=== PATIENT | female | born 1995 | race Caucasian/White ===

== ENCOUNTER 2017-07-22 09:38 | Emergency (ER) | payer OTHER ==
[2017-07-22] MEDS ORDERED: IPRATROPIUM/ALBUTEROL 3 ML DEYVIAL IH ONE (11:23)
--- NOTE | 2017-07-22 11:33 | EDPHY ---
H & P Time Seen by Provider: 07/22/17 10:43 HPI/ROS: CHIEF COMPLAINT: Dyspnea HISTORY OF PRESENT ILLNESS: 22-year-old female presents to the emergency department with dyspnea. She has had ongoing productive cough for the last month. She was seen at urgent care last week and was started on albuterol inhaler and prednisone. She just finished the prednisone yesterday but continues to have ongoing cough, she is short of breath and is having now rib pain. No fevers or chills. She had pneumonia 1 year ago which was treated with antibiotics. She is a nonsmoker. Denies abdominal pain or vomiting. No headache. No known ill contacts. REVIEW OF SYSTEMS: Constitutional: No fever, no chills. Eyes: No double or blurry vision. ENT: No sore throat. Respiratory: Cough, shortness of breath Cardiac: No chest pain. Gastrointestinal: No abdominal pain, vomiting or diarrhea. Genitourinary: No dysuria. Musculoskeletal: No neck or back pain. Skin: No rashes. Neurological: No headache. Past Medical/Surgical History: Pneumonia 1 year ago Social History: Single Smoking Status: Never smoked Physical Exam: General Appearance: Alert, moderate distress. 94%. She is tachypneic. Eyes: Pupils equal and round. Extraocular motions are all intact. ENT: Mouth: Mucous membranes moist. Respiratory: Diffuse expiratory wheezing or rhonchi throughout. No rales. Cardiovascular: Regular rate and rhythm. Gastrointestinal: Abdomen is soft and nontender, no masses, no rebound or guarding, bowel sounds normal. Neurological: Alert and oriented x 3, cranial nerves II through XII grossly intact Skin: Warm and dry, no rashes. Musculoskeletal: Nontender to palpate along the cervical, thoracic or lumbar spine. Neck is supple. Extremities: Full range of motion and no peripheral edema. Psychiatric: Patient is oriented X 3, there is no agitation. Constitutional: Initial Vital Signs Temperature (C) 36.8 C 07/22/17 09:48 Heart Rate 94 07/22/17 09:48 Respiratory Rate 18 07/22/17 09:48 Blood Pressure 122/83 H 07/22/17 09:48 O2 Sat (%) 102 H 07/22/17 09:48 O2 Delivery Mode Room Air Allergies/Adverse Reactions: No Known Allergies Allergy (Verified 07/22/17 09:47) Home Medications: Medication Instructions Recorded Albuterol [Proventil Inhaler HFA 1 - 2 puffs IH Q4PRN PRN #1 mdi 07/22/17 (*)] Albuterol [Ventolin Hfa Inhaler] 200 puffs IH 07/22/17 Azithromycin [Zithromax tab 250 mg] 250 mg PO DAILY #6 tab 07/22/17 predniSONE 60 mg PO DAILY 5 Days tab 07/22/17 Medical Decision Making - Diagnostics Imaging Results: Imaging Impressions Chest X-Ray 07/22/17 11:24 Impression: Suspect mild airways disease. Otherwise negative. Imaging: I viewed and interpreted images myself ED Course/Re-evaluation: 22-year-old female presents to the emergency department feeling short of breath. She states that she has had a productive cough for over 1 month. Chest x-ray was ordered especially since she has had a history of pneumonia in the past. X-ray reveals no obvious pneumonia. She was given DuoNeb and albuterol neb for diffuse expiratory wheezing and rhonchi throughout. She was feeling better. Patient still come continued to complain of some mild tightness in her chest as well as pain with deep breathing. D-dimer was ordered which was negative. I offered CT imaging of her chest to exclude pulmonary embolism in the patient declined. I do not think this patient likely has a pulmonary embolism. Patient improved with albuterol nebulizers. She will be started on Zithromax. She was also given 5 additional days of prednisone as well as a prescription for albuterol MDI. She was instructed to return if she developed fever, worsening shortness of breath or chest pain, or if she felt worse in any way. The case was discussed with Dr. Jeff Huston, secondary supervising physician, who did not directly evaluate the patient but agrees with treatment and plan. Differential Diagnosis: Shortness of breath including but not limited to pulmonary infectious process, COPD, asthma, pulmonary embolus and congestive heart failure. - Data Points Laboratory Results: Laboratory Results 07/22/17 10:40 07/22/17 10:40 07/22/17 07/22/17 07/22/17 10:40 10:40 10:10 WBC 11.33 10^3/uL H 10^3/uL (3.80-9.50) RBC 3.96 10^6/uL L 10^6/uL (4.18-5.33) Hgb 13.5 g/dL g/dL (12.6-16.3) Hct 37.1 % L % (38.0-47.0) MCV 93.7 fL fL (81.5-99.8) MCH 34.1 pg pg (27.9-34.1) MCHC 36.4 g/dL g/dL (32.4-36.7) RDW 11.8 % % (11.5-15.2) Plt Count 382 10^3/uL 10^3/uL (150-400) MPV 9.4 fL fL (8.7-11.7) Neut % (Auto) 52.9 % % (39.3-74.2) Lymph % (Auto) 24.9 % % (15.0-45.0) Jackson % (Auto) 5.9 % % (4.5-13.0) Eos % (Auto) 15.0 % H % (0.6-7.6) Baso % (Auto) 1.1 % % (0.3-1.7) Nucleat RBC Rel Count 0.0 % % (0.0-0.2) Absolute Neuts (auto) 5.99 10^3/uL 10^3/uL (1.70-6.50) Absolute Lymphs (auto) 2.82 10^3/uL 10^3/uL (1.00-3.00) Absolute Monos (auto) 0.67 10^3/uL 10^3/uL (0.30-0.80) Absolute Eos (auto) 1.70 10^3/uL H 10^3/uL (0.03-0.40) Absolute Basos (auto) 0.13 10^3/uL H 10^3/uL (0.02-0.10) Absolute Nucleated RBC 0.00 10^3/uL 10^3/uL (0-0.01) Immature Gran % 0.2 % % (0.0-1.1) Immature Gran # 0.02 10^3/uL 10^3/uL (0.00-0.10) D-Dimer < 0.27 ug/mLFEU ug/mLFEU (0.00-0.50) Sodium 144 mEq/L mEq/L (134-144) Potassium 4.1 mEq/L mEq/L (3.5-5.2) Chloride 107 mEq/L mEq/L (97-110) Carbon Dioxide 23 mEq/l mEq/l (22-31) Anion Gap 14 mEq/L mEq/L (8-16) BUN 10 mg/dL mg/dL (7-23) Creatinine 0.7 mg/dL mg/dL (0.6-1.0) Estimated GFR > 60 Glucose 84 mg/dL mg/dL (70-100) Calcium 9.5 mg/dL mg/dL (8.5-10.4) Medications Given: Discontinued Medications Albuterol (Proventil Neb) 3 ml IH EDNOW ONE Stop: 07/22/17 12:14 Last Admin: 07/22/17 12:23 Dose: 3 ml Albuterol/Ipratropium (Duoneb) 3 ml IH EDNOW ONE Stop: 07/22/17 11:24 Last Admin: 07/22/17 11:39 Dose: 3 ml Departure - Departure Disposition: Home, Routine, Self-Care Clinical Impression: Acute bronchitis Qualifiers: Bronchitis organism: unspecified organism Qualified Code(s): J20.9 - Acute bronchitis, unspecified Condition: Good Instructions: Acute Bronchitis (ED) Additional Instructions: Continue inhaler 2 puffs every 4 hours for one week and then as needed. Zithromax as directed for 5 days. Prednisone 60mg daily for 5 additional days. Return if you developed fever, difficulty breathing or any other concerns. Referrals: Manan Perkins MD [Medical Doctor] - 2-3 days, call for appt. ( Primary care provider extracorporeal circulation specialist) Prescriptions: Albuterol [Proventil Inhaler HFA (*)] 1 - 2 puffs IH Q4PRN PRN #1 mdi PRN Reason: P.r.n. dyspnea Azithromycin [Zithromax tab 250 mg] 250 mg PO DAILY #6 tab predniSONE 60 mg PO DAILY 5 Days tab
[2017-07-22] MEDS ORDERED: IPRATROPIUM/ALBUTEROL 3 ML DEYVIAL ONE (11:38)
[2017-07-22 12:10] LABS: % IMMATURE GRANULYOCYTES 0.2 % (0.0-1.1); ABSOLUTE IMMATURE GRANULOCYTES 0.02 10^3/uL (0.00-0.10); ADD DIFF? NO; ADD MORPH? NO; ADD SCAN? NO; ATYPICAL LYMPHOCYTE FLAG 0 (0-99); FRAGMENT RBC FLAG 0 (0-99); HEMATOCRIT 37.1 % (38.0-47.0); HEMOGLOBIN 13.5 g/dL (12.6-16.3); LEFT SHIFT FLG 0 (0-99); LIPEMIA HEMOLYSIS FLAG 90 (0-99); MEAN CELL HEMOGLOBIN 34.1 pg (27.9-34.1); MEAN CELL HEMOGLOBIN CONCENTR. 36.4 g/dL (32.4-36.7); MEAN CELL VOLUME 93.7 fL (81.5-99.8); MEAN PLATELET VOLUME 9.4 fL (8.7-11.7); PLATELET CLUMPS FLAG 0 (0-99); PLATELET COUNT 382 10^3/uL (150-400); RED BLOOD CELL COUNT 3.96 10^6/uL (4.18-5.33); RED CELL DISTRIBUTION WIDTH 11.8 % (11.5-15.2)
[2017-07-22] MEDS ORDERED: ALBUTEROL 3 ML DEYVIAL IH ONE (12:13)
[2017-07-22 12:14] LABS: ANION GAP 14 mEq/L (8-16); CALCIUM 9.5 mg/dL (8.5-10.4); CARBON DIOXIDE 23 mEq/l (22-31); CHLORIDE 107 mEq/L (97-110); CREATININE 0.7 mg/dL (0.6-1.0); GLOMERULAR FILTRATION RATE > 60; GLUCOSE 84 mg/dL (70-100); POTASSIUM 4.1 mEq/L (3.5-5.2); SODIUM 144 mEq/L (134-144)
[2017-07-22 15:11] VITALS: BP 112/82; PULSE 84; RESP 18; TEMP 98.1; O2SAT 93
== END 2017-07-22 15:10 | disposition home or self-care (01) ==
DX: J20.9 Acute bronchitis, unspecified (principal)